=== PATIENT | male | born 1960 | race Caucasian/White ===

== ENCOUNTER 2016-07-19 12:30 | Observation (INO) ==
--- NOTE | 2016-07-19 12:48 | Anesthesia Evaluation PreOp ---
Date of Encounter: 07/19/16 Time of Encounter: 12:45 - Past History Planned Operation: TURP Cardiac History: HTN Pulmonary History: Denies Any Significant HX TENT FINISHER History: Denies Any Significant HX Other Medical History: Denies Any Significant HX Anesthesia History: Past Anesthesia (B. [facility], Left shoulder, GB, Umbilical Hernia , EGD/Colonoscopy), Problems (PONV) Alcohol Use: none Drug use: marijuana Medications and Allergies Albuterol Sulfate [Ventolin Hfa] 90 mcg IH Q4H PRN 03/06/15 [History] Amlodipine [Norvasc] 10 mg PO DAILY 03/06/15 [History] Meloxicam [Mobic] 15 mg PO DAILY 03/06/15 [History] Metoprolol [Lopressor] 75 mg PO BID 03/06/15 [History] Tamsulosin [Flomax] 0.4 mg PO HS 03/06/15 [History] Diclofenac Sodium [Voltaren] 1 appl TP QID 05/15/15 [History] Docusate [Colace] 100 mg PO BID #30 capsule 05/15/15 [Rx] Esomeprazole Magnesium [Nexium] 20 mg PO DAILY 05/15/15 [History] Hydrocodone/Acetaminophen [[place] 10-325 Tablet] 1 tab PO Q6H PRN #60 tab [Rx] Allergies acetaminophen [From Percocet] Adverse Reaction (Verified 03/06/15 12:04) Vomiting codeine Adverse Reaction (Unverified 02/24/15 15:49) Vomiting Oxycodone [From Percocet] Adverse Reaction (Verified 03/06/15 12:04) Vomiting Penicillins [PCN] Adverse Reaction (Unverified 02/24/15 15:49) Vomiting - Meds/Allergy Pre-op Review Medications Reviewed: Yes Allergies Reviewed: Yes Beta Blockers on Current Med List: Yes If Beta Blockers taken, Date/Time (Last Dose taken): 09:00 07/19/2016 Anesthesia Results - Labs Laboratory Tests 07/09/16 07/09/16 12:13 12:13 WBC 7.9 Hgb 15.5 Hct 46.5 Plt Count 180 Sodium 139 Potassium 4.5 Chloride 105 Carbon Dioxide 26 BUN 18 Creatinine 0.85 - Imaging EKG: image reviewed (SB with sinus arrythmia) Chest x-ray: image reviewed (NAD) Anesthesia Exam O2 Sat Height 1.92 m Weight 94.801 kg Height: 6'3'' Weight: 209# NPO (# of Hours): > 8 Hrs Pain Scale: 0 Pain Scale Used: Numeric (1 - 10) - HEENT Pupil (Motor): Pupils equal, EOMI Mallampati: II Teeth: Missing Oral Opening: Greater than 3 - TENT FINISHER LOC: Oriented TENT FINISHER Motor: Normal RUE, Normal LUE, Normal RLE, Normal LLE, Normal Face TENT FINISHER Sensory: Normal: RUE, LUE, RLE, LLE, Face - Cardiac Rhythm: Regular Murmur: None JVD: No Carotid Bruit: No - Pulmonary Breath Sounds: bilateral Clear Respiratory Effort: Symmetrical Anesthesia Assess/Plan ASA Score: 2 Modified Narciso Scale for Level of Consciousness: Cooperative, oriented, and tranquil Anesthetic Plan: General Autologous Blood: Yes Monitoring Plan: Standard Monitors Recovery Plan: PACU
[2016-07-19] MEDS ORDERED: *HR* FentaNYL (PF) 100 MCG/2 ML VIAL ONE (12:51)
[2016-07-19] MEDS ORDERED: Dexamethasone 4 MG/ML VIAL ONE (12:51)
[2016-07-19] MEDS ORDERED: *HR* Propofol 200 MG/20 ML VIAL IVP ONE (12:51)
[2016-07-19] MEDS ORDERED: Ondansetron 4 MG/2 ML VIAL ONE (12:51)
[2016-07-19] MEDS ORDERED: Scopolamine Patch 1.5 MG PATCH.TD72 TD ONE (13:00)
[2016-07-19] MEDS ORDERED: Famotidine 20 MG/2 ML VIAL IVP ONE (13:01)
[2016-07-19] MEDS ORDERED: Levofloxacin 500 MG/100 ML 500 MG/100 ML BAG IVPB ONE (13:12)
[2016-07-19] MEDS ORDERED: Ringers Solution, Lactated 1,000 ML IVC SCH (13:15)
[2016-07-19] MEDS ORDERED: Albuterol 2.5 MG/3 ML NEBULIZER ONE (13:20)
[2016-07-19] MEDS ORDERED: Albuterol 2.5 MG/3 ML NEBULIZER IH ONE (13:33)
[2016-07-19] MEDS ORDERED: Acetaminophen IV 1,000 MG/100 ML INFUS..BTL ONE (13:48)
--- NOTE | 2016-07-19 13:53 | History & Physical Report ---
Date of Encounter: 07/19/16 Time of Encounter: 13:52 24 Hour HP Update - Instructions Instructions: If the History and Physical is less than 30 days old and was completed prior to A.M. admission and or procedure and has NOT been updated on calendar day of procedure please complete this update prior to performing procedure. - Update Patient reports changes in Medical Condition: No Changes in assessment/condition: No Changes in Medication: No Preop tests/diagnostics Reviewed: Yes Surgery Remains Indicated: Yes Consent for Planned Operative Procedure(s) Verified: Yes - Pre-Operative Checklist Preoperative Checklist Indicated: Yes Prophylactic Antibiotic Ordered: Yes Home Medications Include Beta Sharron: Yes Is VTE Prophylaxis Indicated?: Yes
[2016-07-19] MEDS ORDERED: Ketorolac 30 MG/ML VIAL IVP ONE (14:23)
[2016-07-19] MEDS ORDERED: Dexamethasone 4 MG/ML VIAL IVP ONE (14:23)
[2016-07-19] MEDS ORDERED: *HR* Promethazine 25 MG/ML VIAL IVP PRN ×2 (14:23→16:05)
[2016-07-19] MEDS ORDERED: Ondansetron 4 MG/2 ML VIAL IVP ONE (14:23)
--- NOTE | 2016-07-19 15:07 | Operative Note ---
Date of procedure: 07/19/16 Pre-op diagnosis: BPH, incomplete bladder emptying Post-op diagnosis: same Procedure: Transurethral resection of the prostate Implants: 22 [place] 3-way catheter. Complications: none. Anesthesia: FABI Surgeon: Danis Mccann Estimated blood loss (cc): 50 Specimen: turp chips Condition: stable Disposition: PACU Procedure in Detail: INDICATIONS: Smith is a 56 year old gentleman, who has BPH and is incomplete bladder emptying. He wished to undergo a transurethral resection of prostate. He is aware of the risks of procedure including, but not limited to, bleeding, infection, injury to other structures, need for further procedures, incomplete bladder emptying, bladder neck contracture, urethral stricture, urinary incontinence, retrograde ejaculation, erectile dysfunction, and the risk of anesthesia. He is willing to proceed. DESCRIPTION OF PROCEDURE: After informed consent was obtained, the patient was brought back to the operating room and placed in supine position. Time-out was performed. General anesthesia was then administered and a laryngeal mask airway was placed. He was then placed in lithotomy position. His genitalia were prepped and draped in usual sterile fashion. The resector sheath was then introduced using the visual obturator to the urethra. The prostate showed lateral lobe hyperplasia. There was some enlargement of the median lobe. The ureteral orifices in the normal orthotopic position. There is no bladder tumor. There were 2+ trabeculations. I then inserted the Higginbotham element. The median lobe was taken down using electrocautery down to the level of the verumontanum. I then turned my attention to the left lateral lobe and this was resected away. Attention was then turned to the right lobe and this was resected away. I did perform a small amount of resection anteriorly as well. Once adequate resection was achieved, I then achieved hemostasis with electrocautery. The bladder neck still seemed a little bit tight on the posterior aspect. A TUIP was then performed at the 5:00 and 7:00 regions. The intervening tissue between these cuts was resected out using the loop. All the TURP chips were irrigated out. I then confirmed hemostasis again. Once hemostasis was adequate, I removed the scope. The verumontanum and ureteral orifices were free of injury and left intact. A 22-[place]ombian three-way catheter was then placed, 60 mL was instilled in the balloon. The catheter was left on mild traction. Slow continuous bladder irrigation was started. The patient was then awakened from general anesthesia, brought to recovery room in good condition. All sponge, needle, and instrument counts were correct.
--- NOTE | 2016-07-19 15:19 | History & Physical Report ---
Date of Encounter: 07/19/16 Time of Encounter: 15:19 24 Hour HP Update - Instructions Instructions: If the History and Physical is less than 30 days old and was completed prior to A.M. admission and or procedure and has NOT been updated on calendar day of procedure please complete this update prior to performing procedure. - Update Patient reports changes in Medical Condition: No Changes in assessment/condition: No Changes in Medication: No Preop tests/diagnostics Reviewed: Yes Surgery Remains Indicated: Yes Consent for Planned Operative Procedure(s) Verified: Yes - Pre-Operative Checklist Preoperative Checklist Indicated: Yes Prophylactic Antibiotic Ordered: Yes Home Medications Include Beta Sharron: Yes Is VTE Prophylaxis Indicated?: Yes
[2016-07-19] MEDS: *HR* Morphine 2 MG/ML SYRINGE IVP PRN ×2 (15:21→15:31)
--- NOTE | 2016-07-19 15:58 | Anesthesia Evaluation Post Op ---
Date of Encounter: 07/19/16 Time of Encounter: 16:00 - Vital Signs Vital Signs: Vital Signs/O2 Sat/Glucose, Most Current Temp Pulse Resp BP Pulse Ox 07/19/16 15:52 97.6 F 53 16 124/78 98 07/19/16 15:42 55 16 131/80 99 07/19/16 15:32 97.5 F L 59 16 126/77 96 07/19/16 15:22 54 16 141/80 99 07/19/16 15:12 56 16 138/90 98 07/19/16 15:02 97.2 F L 64 16 121/76 98 07/19/16 13:00 98.1 F 56 18 118/75 97 - Lungs Lungs: Clear Ascult./Percussion - Airway Airway: Non-obstructed - Cardiovascular Regular Rate - Mental Status Mental Status: Alert & Oriented, Answers Appropriately - Pain Pain Scale: 1 - Nausea Vomiting Nausea Vomiting: Not Present - Hydration Hydration: Ice chips - Discharge PostOp Status: Transfer Patient to floor
[2016-07-19] MEDS ORDERED: Ondansetron 4 MG/2 ML VIAL IVP PRN (16:05)
[2016-07-19] MEDS ORDERED: *HR* HYDROmorphone 2 MG/ML SYRINGE IVP PRN (16:05)
[2016-07-19] MEDS ORDERED: Naloxone 0.4 MG/ML INJ IVP PRN (16:05)
[2016-07-19] MEDS ORDERED: Acetaminophen 325 MG TABLET PO PRN (16:05)
[2016-07-19] MEDS ORDERED: Levofloxacin 500 MG/100 ML 500 MG/100 ML BAG IVPB SCH (16:05)
[2016-07-19] MEDS: *HR* HYDROcodone/Acet 5/325 mg TABLET PO PRN ×2 (16:38→20:32)
[2016-07-19] MEDS: 0.9 % Sodium Chloride 1,000 ML IVC SCH (16:38)
[2016-07-19] MEDS ORDERED: amLODIPine 5 MG TABLET PO SCH (21:00)
[2016-07-20] MEDS: *HR* HYDROcodone/Acet 5/325 mg TABLET PO PRN ×2 (01:18→07:45)
[2016-07-20] MEDS: 0.9 % Sodium Chloride 1,000 ML IVC SCH (01:24)
--- NOTE | 2016-07-20 07:15 | Discharge Summary ---
Date of Encounter: 07/20/16 Time of Encounter: 07:13 - Discharge Diagnosis (1) BPH (benign prostatic hypertrophy) with urinary retention Priority: Primary Status: Acute - Discharge Medications Prescriptions: Docusate [Colace] 100 mg PO BID #60 capsule HYDROcodone/Acet 5/325 mg [[place] 5-325 mg] 2 tab PO Q4H PRN #20 tablet PRN Reason: Moderate Pain Home Medications: Albuterol Sulfate [Ventolin Hfa] 2 puff IH Q4H PRN 03/06/15 [History] Amlodipine [Norvasc] 10 mg PO HS 03/06/15 [History] Meloxicam [Mobic] 15 mg PO DAILY 03/06/15 [History] Metoprolol [Lopressor] 75 mg PO BID 03/06/15 [History] Tamsulosin [Flomax] 0.4 mg PO DAILY 03/06/15 [History] Esomeprazole Magnesium [Nexium] 20 mg PO DAILY 05/15/15 [History] Docusate [Colace] 100 mg PO BID #60 capsule 07/20/16 [Rx] HYDROcodone/Acet 5/325 mg [[place] 5-325 mg] 2 tab PO Q4H PRN #20 tablet 07/20/16 [Rx] Allergies/Adverse Reactions: Allergies acetaminophen [From Percocet] Adverse Reaction (Verified 07/19/16 16:14) Vomiting codeine Adverse Reaction (Verified 07/19/16 16:14) Vomiting Oxycodone [From Percocet] Adverse Reaction (Verified 07/19/16 13:03) Vomiting Penicillins [PCN] Adverse Reaction (Verified 07/19/16 16:14) Vomiting Date of admission: 07/19/16 15:50 Primary care physician: Tara Hernandez MD Discharging clinician: Danis Mccann Anticipated date of discharge: 07/20/16 - Patient Status Disposition: Home, Self-Care Condition: Good Functional capacity at discharge: independent ambulation Overall status at discharge: patient is progressing back to baseline - Discharge Instructions Follow Up With: Danis Mccann MD [Partnered Physician] - (2 weeks for post void residual.) Additional Instructions: 1. No heavy lifting > 20# x 2 weeks. 2. Monitor color of urine. If hematuria worsens call the office or return to the ER. 3. Call for any fevers or chills. 4. Hold any aspirin or NSAIDs x 1 week. 5. F/U in urology in 2 weeks. - Diet and Activity Activity: increase activity as tolerated Diet: advance to your usual diet - Hospital Course Hospital course: Mr. Ellison is a 56 year old male with BPH and incomplete bladder emptying. He underwent a TURP on 07/19/2016. On POD #1 his urine was clear. His catheter was removed and he was able to void. He was discharged home later that day. - Time Spent with Patient Total time spent providing and/or coordinating discharge services: Less than 30 minutes Exam Initial Vital Signs Temp Pulse Resp BP Pulse Ox 98.1 F 56 18 118/75 97 07/19/16 13:00 07/19/16 13:00 07/19/16 13:00 07/19/16 13:00 07/19/16 13:00 - General physical appearance Present: well developed, well nourished, no distress - Eyes Absent: icteric - ENT Present: normal nares - Neck Present: trachea midline - Respiratory Present: normal respiratory effort - Cardiovascular Cardiovascular exam IM: RRR - Abdomen Abdomen: Present: soft - VTE Documentation of Mechanical Device: Intermittent pneumatic compression device
[2016-07-20 13:15] VITALS: BP 116/66
== END 2016-07-20 14:49 | disposition home or self-care (01) | DRG 482 ==
LOC: SAMDAY 12:30 → 3BNU 15:48 → INTOOBSV 15:50 → 3BNU 15:50
PROVIDERS: ADMIT Urology; ATTEND Urology
PROC: UROTURP (2016-07-19 14:05)